=== PATIENT | male | born 1930 | race Hispanic/Latino ===

== ENCOUNTER 2019-09-07 20:21 | Inpatient (IN) ==
--- NOTE | 2019-09-07 22:31 | PROVIDER DOCUMENTATION ---
HPI-General Adult - General Chief Complaint: Fall Stated Complaint: FALL Time Seen by Provider: 09/07/19 21:59 Source: patient, family Allergies/Adverse Reactions: Patient Allergies Allergy/AdvReac Type Severity Reaction Status Date / Time Iodinated Contrast Media Allergy Severe SWELLING Verified 06/03/19 13:22 [Iodinated Contrast Media - IV Dye] Home Medications: Home Medication List Medication Instructions Recorded Confirmed Last Taken Type Atorvastatin Calcium [Lipitor] 20 mg PO HS 05/17/12 09/08/19 07/20/16 History Tamsulosin [Flomax] 0.4 mg PO HS 05/17/12 09/08/19 07/21/16 History Insulin Glargine [Lantus] 15 unit SUBQ DAILY 10/04/12 09/08/19 07/21/16 History Insulin Lispro [Humalog] 5 unit SUBQ BID 04/19/16 09/08/19 07/21/16 History Finasteride 5 mg PO DAILY 07/21/16 09/08/19 07/21/16 History Dicyclomine [Bentyl] 10 mg PO TID 09/08/19 09/08/19 Unknown History Memantine [Namenda] 10 mg PO DAILY 09/08/19 09/08/19 Unknown History Sertraline HCl 50 mg PO DAILY 09/08/19 09/08/19 Unknown History - History of Present Illness -Gen Adult Nature of Presenting Problems: 88yo male presents with family with CC of re-current falls. The patient had a fall yesterday and today. Today he hit his head when he fell and then felt nauseated and had to lay down. The patient reports that prior to falling he felt dizzy. The patient does have a hx of falls, previously thought due to his blood sugar. The patient reports hip and back pain, and some chest pains. The patient does struggle to remember his medications. The patient has not been dx with parkinsons disease. The patient does not have hx of alcohol, smoking, or illegal drugs. Location of Pain/Injury: reports: pelvis (hips) Severity: reports: mild Onset/Duration: reports: other (fell yesterday, and then again today) Context/Activities at Onset: reports: light activity, other (he noted dizziness prior to fall) Associated Symptoms: reports: back/neck pain, chest pain, dizziness, other (hand pain). denies: fever/chills, shortness of breath Similar Symptoms Previously?: Yes (multiple falls over the last 2 days) Review of Systems - Adult - REVIEW OF SYSTEMS - ADULT Constitutional: reports: no symptoms reported. denies: fever Eyes: reports: no symptoms reported. denies: eye pain Ears, Nose, Mouth & Throat: reports: no symptoms reported. denies: throat pain Cardiovascular: reports: chest pain Respiratory: reports: no symptoms reported. denies: shortness of breath Gastrointestinal: reports: no symptoms reported. denies: abdominal pain Genitourinary: reports: no symptoms reported Musculoskeletal: reports: back pain, joint pain, joint swelling, other (hand pain) Integumentary: reports: other (abrasion) Neurological: reports: dizziness/vertigo Psychiatric: reports: no symptoms reported Endocrine: reports: no symptoms reported Hematologic/Lymphatic: reports: no symptoms reported Allergic/Immunologic: reports: no symptoms reported Past History - Adult - PAST MEDICAL HISTORY-ADULT Review of Records: reports: Old Records Reviewed Major Childhood Illnesses: reports: denies history Cardiovascular: reports: hyperlipidemia Respiratory: reports: denies history Gastrointestinal: reports: colitis Obstetrical/Gynecological: reports: denies history Genitourinary: reports: denies history Musculoskeletal: reports: denies history Neurological: reports: denies history Endocrine/Immune: reports: Diabetes Other Conditions: reports: denies history - PRIOR SURGERIES/PROCEDURES Surgical/Procedure History: reports: tonsillectomy, hernia repair - IMMUNIZATION STATUS Childhood Immunizations: See Nurse Assessment Flu Vaccine: See Nurse Assessment - FAMILY HISTORY Family History: reviewed, not pertinent Physical Exam-General - PHYSICAL EXAM-ADULT Initial Vital Signs Reviewed: Yes - CONSTITUTIONAL General Appearance: appears well, alert, no apparent distress - EYES Eyes: PERRL/EOMI. negative: conjuctival exudate, photophobia, sclera injected, scleral icterus - HEAD, EARS, NOSE, MOUTH & THROAT HENMT: normocephalic/atraumatic, pharynx normal. negative: moist mucous membranes (dry), pharyngeal erythema, tonsillar exudate - NECK Neck: normal inspection - RESPIRATORY Respiratory: normal breath sounds, no respiratory distress - CARDIOVASCULAR Cardiovascular: regular rate, rhythm, no edema - GASTROINTESTINAL (ABDOMEN) Abdominal Exam: non tender, soft - MUSCULOSKELETAL Extremity: non-tender, normal inspection, other (strength 5/5 in the upper and LE bilaterally. Swelling and ecchymosis noted over the right middle finger.) - SKIN Integumentary: normal color, warm/dry - NEUROLOGIC Neurologic: ophthalmic dispenser II-XII nml as tested, other (tremor with activity). negative: aphasia, facial droop, focal weakness, motor weakness, sensory deficit - PSYCHIATRIC Psych/Mental Status: normal mood/affect, normal thought content, oriented x 3 Progress - PLAN OF CARE/RESULTS Progress/Plan/Lab Results: Vital Signs - 8 hr 09/07/19 20:29 Temperature 98.3 F Pulse Rate 98 H Respiratory Rate 18 Blood Pressure 118/65 O2 Sat by Pulse Oximetry 93 L Orders Category Date Time Status CT HEAD/C-SPINE W/O CONTRAST [CT] Stat Exams 09/07/19 22:06 Ordered HAND COMPLETE RIGHT [RAD] Stat Exams 09/07/19 22:30 Ordered SHOULDER-RIGHT [RAD] Stat Exams 09/07/19 22:30 Ordered THORACO-LUMBAR SPINE [RAD] Stat Exams 09/07/19 22:07 Ordered XRAY HIP W/PELVIS BILAT 3-4VWS [RAD] Stat Exams 09/07/19 22:07 Ordered cxr [CHEST-2 VIEWS] [RAD] Stat Exams 09/07/19 22:07 Ordered AMMONIA [CHEM] Stat Lab 09/07/19 22:08 Uncollected BNP [PRO B-NATRIURETIC PEPTIDE] Stat Lab 09/07/19 22:08 Uncollected CBC WITH DIFF [HEME] Stat Lab 09/07/19 22:08 Uncollected COMPREHENSIVE METABOLIC PANEL [CHEM] Stat Lab 09/07/19 22:08 Uncollected PROTIME WITH INR [COAG] Stat Lab 09/07/19 22:08 Uncollected PTT [COAG] Stat Lab 09/07/19 22:08 Uncollected TROPONIN T Stat Lab 09/07/19 22:08 Uncollected TSH Stat Lab 09/07/19 22:08 Uncollected URINALYSIS [URINALYSIS] Stat Lab 09/07/19 22:08 Uncollected EKG [EKG] Stat Ther 09/07/19 22:08 Ordered Result Diagrams: 09/07/19 23:09 09/07/19 23:09 - REASSESSMENT Reassessment #1 Status: other (Given complaints of prefall dizziness as well as some chest pain will plan to admit for observation. Family agreeable to this plan. Discussed with the hospitalist who has accepted the patient.) Departure - Departure Date of Disposition Decision: 09/08/19 Time of Disposition Decision: 01:56 DIAGNOSIS: Dizziness Fall Qualifiers: Encounter type: initial encounter Qualified Code(s): W19.XXXA - Unspecified fall, initial encounter Finger fracture Qualifiers: Fracture type: closed Phalanx: proximal Fracture alignment: nondisplaced Laterality: right Disposition: ADMITTED INPATIENT 09 Certified Medical Emergency: Emergent Condition: Good Referrals and Follow-Ups: Nisreen Garcia MD [Primary Care Provider] - - Critical Care Note This patient required my direct & personal management of CC.: No Attestation - Physician/ BREONNA Attestation Patient care was provided by Advanced Practice Provider:: No The physician spent face to face time with patient:: Yes Advanced Practice Provider documentation review:: Supervising physician onsite and consulted in the evaluation and care of this patient. The physician did have a face to face encounter with the patient.
[2019-09-07 23:40] LABS: BASO# 0.01 X1000 (0.0-0.2); BASO% 0.1 % (0.0-0.8); EOS# 0.01 X1000 (0.0-0.7); EOS% 0.1 % (0.0-10.0); HEMATOCRIT 40.3 % (42.0-52.0); HEMOGLOBIN 13.3 g/dL (14.0-18.0); IMM GRAN# 0.03 X1000 (0.0-0.04); IMM GRAN% 0.3 % (0.0-0.5); LYMPH# 1.03 X1000 (1.2-3.4); LYMPH% 11.3 % (20.5-51.1); MCH 30.3 PG (27-31); MCV 91.8 FL (81-99); MONO# 1.25 X1000 (0.11-0.59); MONO% 13.8 % (1.7-9.3); MPV 12.1 FL (7.4-10.4); NEUT# 6.76 X1000 (1.4-6.5); NEUT% 74.4 % (42.2-75.2); PLT 138 X1000 (130-400); RBC 4.39 XMIL (4.7-6.1); RDW 12.8 % (11.5-14.5); WBC 9.09 X1000 (4.8-10.8)
[2019-09-08 00:18] LABS: INR 1.07; PROTIME 14.1 Seconds (11.0-16.0)
[2019-09-08 00:19] LABS: PTT 31.4 Seconds (22.3-41.8)
[2019-09-08 00:25] LABS: AGAP 14; CHLORIDE 94 mmol/L (98-107); POTASSIUM 4.6 mmol/L (3.5-5.1); SODIUM 132 mmol/L (136-145); TCO2 24 mmol/L (25-35)
[2019-09-08 00:26] LABS: ALKALINE PHOSPHATASE 85 U/L (32-122); BUN 26 mg/dL (8-22); CALCIUM 8.8 mg/dL (8.8-10.2); COSMO 288; ESTIMATED GFR > 60; GLUCOSE 438 mg/dL (70-104); GOT 17 U/L (10-34); GPT 13 U/L (10-44); TOTAL BILIRUBIN 0.41 mg/dL (0.20-1.00)
[2019-09-08 00:45] LABS: URINE SOURCE VOIDED
[2019-09-08] MEDS ORDERED: NS 1,000 ML IV ONE (00:52)
[2019-09-08 01:31] LABS: ALLEN TEST YES; BE 1.9 mmoll (-3.0-3.0); BLOOD TYPE ARTERIAL; HCO3-(ACT) 26.4 mmoll (20.0-26.0); METHB 0.6 % (0.0-1.5); MODALITY ROOM AIR; O2(CT) 16.8 mL/dL (15.0-23.0); O2HB 95.3 % (95.0-99.0); PCO2(98.6) 36 mmHg (35-45); PO2(98.6) 73 mmHg (60-100); SAMPLE BLOOD; SAO2 97.1 % (95.0-100.0); THB 12.5 g/dL (11.5-17.4); pH(98.6) 7.46 (7.35-7.45)
[2019-09-08 01:36] LABS: BILIRUBIN URINE NEGATIVE (NEGATIVE); BLOOD URINE NEGATIVE (NEGATIVE); COLOR YELLOW; GLUCOSE URINE >1000 mg/dL (NEGATIVE); KETONE URINE NEGATIVE (NEGATIVE); LEUKOCYTES URINE NEGATIVE (NEGATIVE); NITRITE URINE NEGATIVE (NEGATIVE); PROTEIN URINE NEGATIVE (NEGATIVE); SP GRAVITY URINE 1.033; TURBIDITY URINE CLEAR (CLEAR); UR EPITHELIAL CELLS <10 /HPF (<10); URINE BACTERIA NEGATIVE /HPF; URINE RBC <10 /HPF (<10); URINE WBC <10 /HPF (<10); UROBILINOGEN URINE NORMAL (NORMAL)
[2019-09-08] MEDS ORDERED: HUMULIN R IV ONE (01:43)
--- NOTE | 2019-09-08 03:34 | EKG Report ---
Test Performed on : 09/08/2019 01:28:52 AM Test Reason : Chest Pain Blood Pressure : / mmHG Vent. Rate : 083 BPM Atrial Rate : 083 BPM P-R Int : 148 ms QRS Dur : 136 ms QT Int : 396 ms P-R-T Axes : 054 -13 013 degrees QTc Int : 465 ms Normal sinus rhythm. 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
[2019-09-08 04:39] LABS: HEMOGLOBIN A1C 8.9 % (4.8-6.0)
[2019-09-08] MEDS ORDERED: TYLENOL PO PRN (05:01)
[2019-09-08] MEDS ORDERED: ZOFRAN IV PRN (05:01)
--- NOTE | 2019-09-08 05:21 | HISTORY AND PHYSICAL ---
CHIEF COMPLAINT: Frequent falls. HISTORY OF PRESENT ILLNESS: Mr. Zapata is a very pleasant 88-year-old male who has had recurrent falls since December. Had several falls over the last couple of days. Today he was having some allergies, took some Zyrtec, was reportedly somewhat drowsy, was not paying attention and fell. He did hit his head. He did not have loss of consciousness. [place] nauseous when he laid down. Did have a feeling of dizziness right before he fell. The patient has the beginnings of dementia from what the daughter at the bedside tells me. He does not want help talking his medications and oftentimes forgets to take them altogether. He lives at home with his . There is one child local but I believe everyone else lives in [place]. At any rate, he may benefit from home health or changing living status. He will be admitted for further evaluation and treatment. PAST MEDICAL HISTORY: Dementia, hyperlipidemia, diabetes mellitus, type 2, now insulin-dependent, BPH. PREVIOUS SURGICAL HISTORY: Hernia repair and tonsillectomy. SOCIAL HISTORY: No tobacco, alcohol or illicit drugs. Lives at home with his . FAMILY HISTORY: His mother had diabetes mellitus. He did have one brother who had pancreatic cancer and . ALLERGIES: Iodine contrast causing anaphylaxis. HOME MEDICATIONS: Lispro insulin 5 units subcutaneously b.i.d., Lipitor 20 mg p.o. nightly, Bentyl 10 mg p.o. t.i.d., finasteride 5 mg p.o, daily, Lantus 15 units subcutaneously daily, Namenda 10 mg p.o. daily, sertraline 50 mg p.o. daily, Flomax 0.4 mg p.o. nightly. REVIEW OF SYSTEMS: Fourteen-point review of systems conducted with the patient. Pertinent positives listed above in the HPI. Also has complaint of right hand pain. All other systems reviewed and found to be negative. PHYSICAL EXAMINATION: VITAL SIGNS: Temperature 98.3, pulse 72, respirations 14, blood pressure 112/59, oxygen saturation 94% on room air. GENERAL: A pleasant 88-year-old male lying in the ER stretcher. Alert and oriented times 3, in no acute distress. Daughter is at bedside. Very attentive. HEENT: Head is normocephalic. An abrasion noted on the bridge of his nose. Sclera is anicteric. Pupils equal, round, reactive to light. Conjunctiva is pink. Oral mucosa is mildly dry. NECK: Supple. No JVD. No thyromegaly. Trachea is midline. No cervical lymphadenopathy. CARDIAC: S1, S2 appreciated. No murmurs, gallops, rubs. LUNGS: Clear to auscultation bilaterally. No rhonchi, wheezes or rales. Symmetric rise and fall with respirations. ABDOMEN: Soft, nondistended, nontender. Bowel sounds present all 4 quadrants, normoactive. No pulsatile mass. No organomegaly. EXTREMITIES: No clubbing, cyanosis or edema bilateral lower extremities. Right upper extremity edema and ecchymosis noted over the right middle and index finger. MUSCULOSKELETAL: 5/5 upper and lower extremity strength. NEUROLOGICAL: Alert and oriented times 3. Cranial nerves 2 through 12 grossly intact. He does have an intention tremor in bilateral upper extremities. DIAGNOSTIC DATA: CT of the head: No acute intracranial process. Chest x-ray: No acute disease. LABORATORY DATA: WBC 9.09. Hemoglobin 13.3. Hematocrit 40.3. Platelet count 138. Sodium 132. Potassium 4.6. Chloride 94. Carbon dioxide 24. BUN 26. Creatinine 1. Glucose 438. Urine unremarkable. ASSESSMENT: 1. Frequent falls. 2. Diabetes mellitus, type 2, insulin-dependent with hyperglycemia. 3. Dementia. 4. Hyperlipidemia. 5. Benign prostatic hyperplasia. 6. Poor medical compliance. PLAN: Will admit patient to the medical floor. Normal saline. Recheck laboratory data. Sliding scale insulin with fingerstick blood sugars q.4.h. Check hemoglobin A1c. Check TSH. Continue home medications. Consult Case Management for safe discharge. Spoke to the daughter about home health or possibly an assisted living. She stated that she would take information on that. However, the patient has made it clear that he does not want to move out of his house. Continue to monitor the patient. Further recommendation per patient clinical course. Dictated by WINSTON Borden for Elijah Rodriguez MD I have performed a face to face diagnostic evaluation. Labs/ xrays- reviewed. Exam- Chest- clear, CV- regular. A/P- Falls, DM2- Admit, fall precautions, Monitor BG, HBA1c. Dr. Rodriguez cc: MD Royal Lara CRNP Lloyd James, MD [facility]
[2019-09-08] MEDS: HUMALOG SUBQ SCH ×5 (05:22→22:59)
[2019-09-08] MEDS: NS 1,000 ML IV SCH ×2 (06:02→23:06)
--- NOTE | 2019-09-08 07:26 | Diag Imaging Result Doc PS360 ---
EXAM: THORACO-LUMBAR SPINE 09/07/2019 HISTORY: Fall TECHNIQUE: Thoracolumbar spine three views COMMENT: The pedicles are intact. There are osteophytes present anteriorly at multiple levels particularly at the T12-L1 level. There is no evidence of fracture or subluxation. IMPRESSION: Degenerative disc disease. Electronically signed by Golden Del Rio 09/08/2019 7:24 AM
--- NOTE | 2019-09-08 07:28 | Diag Imaging Result Doc PS360 ---
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 There is no evidence of pneumothorax or pleural fluid collection. The heart size and pulmonary vascularity are within normal limits. The inspiration is less optimal than on 07/27/2017. Otherwise considering differences in technique there has been no significant change. IMPRESSION: No acute disease. Electronically signed by Golden Del Rio 09/08/2019 7:25 AM
--- NOTE | 2019-09-08 07:29 | Diag Imaging Result Doc PS360 ---
EXAM: XRAY HIP W/PELVIS BILAT 3-4VWS 09/07/2019 HISTORY: Fall TECHNIQUE: AP pelvis and left hip three views COMMENT: The hip joint spaces are well-maintained. There is no evidence of acute fracture or dislocation. IMPRESSION: No acute bony abnormality. Electronically signed by Golden Del Rio 09/08/2019 7:26 AM
--- NOTE | 2019-09-08 07:47 | Diag Imaging Result Doc PS360 ---
EXAM: SHOULDER-RIGHT 09/07/2019 HISTORY: Fall TECHNIQUE: Right shoulder three views COMMENT: There is degenerative change in the acromioclavicular and glenohumeral joint. There is no evidence of fracture or dislocation. IMPRESSION: Osteoarthritis. Electronically signed by Golden Del Rio 09/08/2019 7:45 AM
--- NOTE | 2019-09-08 07:47 | Diag Imaging Result Doc PS360 ---
EXAM: HAND COMPLETE RIGHT 09/07/2019 HISTORY: Fall and swelling TECHNIQUE: Right hand three views COMMENT: There is a fracture of the proximal phalanx of the ring finger. There are degenerative changes in the interphalangeal joints and first metacarpophalangeal joint. IMPRESSION: Fracture fourth proximal phalanx. Electronically signed by Golden Del Rio 09/08/2019 7:44 AM
--- NOTE | 2019-09-08 08:03 | Diag Imaging Result Doc PS360 ---
EXAM: CT HEAD/C-SPINE W/O CONTRAST 09/07/2019 HISTORY: Fall with Head injury TECHNIQUE: This exam was performed using automated exposure control, adjustment of mA or kV according to patient size, and/or use of iterative reconstruction technique. COMMENT: There is mild generalized cerebral and cerebellar atrophy. There is no evidence of mass effect, bleed, or abnormal extra-axial fluid collection. Compared to 11/26/2018 the appearance the brain has not changed significantly. The calvarium is intact. There is a mucous retention cyst and some mucosal thickening in the right maxillary sinus. There are no air-fluid levels. There is also mucosal thickening in the right sphenoid sinus. The nasal bones and nasal septum are deviated somewhat to the right. This was also the case at the time the previous study. Cervical spine: There are degenerative changes in the anterior atlantoaxial joint. There is degenerative disc disease with anterior osteophyte formation at multiple levels and vacuum phenomenon present at the C6-7 level. Compared to the previous study of 11/26/2018 the vacuum phenomenon was not present previously but otherwise are has been no significant change. There is no prevertebral soft tissue swelling. The facets are aligned. There is severe facet arthropathy present on the left side at the C4-5 and to some extent C5-6 level. This was also the case at the time the previous study. IMPRESSION: 1. No evidence of acute intracranial disease. Chronic sinusitis as described. 2. 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 Electronically signed by Golden Del Rio 09/08/2019 8:00 AM
[2019-09-08] MEDS: ZOLOFT PO SCH (09:05)
[2019-09-08] MEDS: NAMENDA PO SCH (09:05)
[2019-09-08] MEDS: BENTYL PO SCH ×3 (09:05→17:50)
[2019-09-08] MEDS: PROSCAR PO SCH (09:05)
[2019-09-08] MEDS: LANTUS INSULIN SUBQ SCH (17:50)
[2019-09-08] MEDS: FLOMAX PO SCH (22:59)
[2019-09-08] MEDS: LIPITOR PO SCH (22:59)
[2019-09-09] MEDS: HUMALOG SUBQ SCH ×6 (03:47→22:05)
[2019-09-09 07:58] LABS: AGAP 10; BUN 17 mg/dL (8-22); CALCIUM 8.4 mg/dL (8.8-10.2); CHLORIDE 102 mmol/L (98-107); COSMO 284; CREATININE 0.8 mg/dL (0.7-1.2); ESTIMATED GFR > 60; GLUCOSE 215 mg/dL (70-104); POTASSIUM 4.1 mmol/L (3.5-5.1); SODIUM 138 mmol/L (136-145); TCO2 26 mmol/L (25-35)
[2019-09-09 09:28] LABS: BASO# 0.01 X1000 (0.0-0.2); BASO% 0.1 % (0.0-0.8); EOS# 0.08 X1000 (0.0-0.7); HEMATOCRIT 38.5 % (42.0-52.0); HEMOGLOBIN 12.6 g/dL (14.0-18.0); IMM GRAN# 0.02 X1000 (0.0-0.04); IMM GRAN% 0.3 % (0.0-0.5); LYMPH# 1.39 X1000 (1.2-3.4); LYMPH% 17.5 % (20.5-51.1); MCH 30.4 PG (27-31); MCHC 32.7 g/dL (33-37); MONO# 1.02 X1000 (0.11-0.59); MONO% 12.8 % (1.7-9.3); MPV 11.8 FL (7.4-10.4); NEUT# 5.44 X1000 (1.4-6.5); NEUT% 68.3 % (42.2-75.2); PLT 141 X1000 (130-400); RBC 4.14 XMIL (4.7-6.1); RDW 12.7 % (11.5-14.5); WBC 7.96 X1000 (4.8-10.8)
[2019-09-09] MEDS: NAMENDA PO SCH (09:41)
[2019-09-09] MEDS: PROSCAR PO SCH (09:42)
[2019-09-09] MEDS: ZOLOFT PO SCH (09:42)
[2019-09-09] MEDS: BENTYL PO SCH ×3 (09:42→17:42)
--- NOTE | 2019-09-09 12:03 | PROGRESS NOTE ---
DATE: 09/09/2019 SUBJECTIVE: Patient reports feeling fine. Denies any complaint at this time. OBJECTIVE: Vital Signs: Temperature 98.2 degrees, heart rate 72, respiratory rate 20, blood pressure 127/50, O2 saturation 96% on room air. General: This is a very pleasant 88-year-old male, lying in bed, in no acute distress. Cardiovascular: S1, S2 heard. No murmurs, gallops, or rubs. Regular rate and rhythm. Respiratory: Clear bilaterally to auscultation. No work of breathing or using accessory muscles. Abdomen: Soft. Nontender to palpation. Bowel sounds present. No organomegaly. Extremities: Right upper extremity edema and ecchymosis noted in the right fourth finger. Neurological: Patient alert and oriented x3. Moves 4 extremities. LABORATORY DATA: Reviewed. ASSESSMENT AND PLAN: 1. Frequent falls. That is the reason why this patient was admitted to the hospital. I have talked with the patient and his family, and they agreed to go to rehab facility. We will put a consult for mental health social worker tomorrow, and we will go from there. 2. Diabetes mellitus type 2. We will continue with sliding scale insulin. Accu-Chek before meals and also at bedtime. 3. Dementia. Patient looks to be very oriented. 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 At this point, we will continue with current management. 4. Hyperlipidemia. Will continue home medications. 5. Disposition. As we mentioned before, Physical Therapy and Occupational Therapy have been consulted, and we will put a consult in for mental health social worker for rehab placement for this patient. cc: Blaine Doan MD
[2019-09-09] MEDS: NS 1,000 ML IV SCH (17:42)
[2019-09-09] MEDS: LANTUS INSULIN SUBQ SCH (17:43)
[2019-09-09] MEDS: LIPITOR PO SCH (22:02)
[2019-09-09] MEDS: FLOMAX PO SCH (22:03)
[2019-09-10] MEDS: HUMALOG SUBQ SCH ×6 (02:36→22:50)
[2019-09-10] MEDS: NS 1,000 ML IV SCH ×3 (06:51→22:50)
[2019-09-10 07:35] LABS: BASO# 0.01 X1000 (0.0-0.2); BASO% 0.1 % (0.0-0.8); EOS# 0.09 X1000 (0.0-0.7); EOS% 1.3 % (0.0-10.0); HEMATOCRIT 39.5 % (42.0-52.0); HEMOGLOBIN 13.1 g/dL (14.0-18.0); IMM GRAN# 0.02 X1000 (0.0-0.04); IMM GRAN% 0.3 % (0.0-0.5); LYMPH# 1.29 X1000 (1.2-3.4); LYMPH% 19.2 % (20.5-51.1); MCH 30.2 PG (27-31); MCHC 33.2 g/dL (33-37); MONO# 0.61 X1000 (0.11-0.59); MONO% 9.1 % (1.7-9.3); MPV 11.4 FL (7.4-10.4); PLT 151 X1000 (130-400); RBC 4.34 XMIL (4.7-6.1); RDW 12.3 % (11.5-14.5); WBC 6.72 X1000 (4.8-10.8)
[2019-09-10 08:09] LABS: AGAP 13; ALBUMIN 3.3 g/dL (3.5-5.0); BUN 16 mg/dL (8-22); CALCIUM 8.5 mg/dL (8.8-10.2); CHLORIDE 105 mmol/L (98-107); COSMO 286; CREATININE 0.7 mg/dL (0.7-1.2); ESTIMATED GFR > 60; GLUCOSE 134 mg/dL (70-104); PHOSPHORUS 2.9 mg/dL (2.7-4.5); SODIUM 142 mmol/L (136-145); TCO2 24 mmol/L (25-35)
[2019-09-10] MEDS: BENTYL PO SCH ×3 (08:38→22:51)
[2019-09-10] MEDS: PROSCAR PO SCH (08:38)
[2019-09-10] MEDS: ZOLOFT PO SCH (08:38)
[2019-09-10] MEDS: NAMENDA PO SCH (08:38)
--- NOTE | 2019-09-10 11:42 | PROGRESS NOTE ---
DATE: 09/10/2019 SUBJECTIVE: The patient reports feeling fine. No complaints at this time. OBJECTIVE: Vital Signs: Temperature 97.5 degrees, heart rate 69, respiratory rate 18, blood pressure 137/152, and O2 saturation 97% on room air. General: On examination this is a very pleasant 88-year-old male, lying in bed, in no acute distress. Cardiovascular: S1, S2 heard. No murmurs, gallops, or rubs. Regular rate and rhythm. Respiratory: Clear bilaterally to auscultation. No work of breathing or using accessory muscles. Abdomen: Soft, nontender to palpation. Bowel sounds present. No organomegaly. Extremities: Right upper extremity edema and ecchymosis noted in the right 4th finger. Neurologic: On exam, patient alert and oriented x3. Moves 4 extremities. LABORATORY DATA: Reviewed. ASSESSMENT AND PLAN: 1. Frequent falls. Patient agreed to go to rehab facility. At this point, social work case manager has been consulted. He is ready to go to rehab at this point from medical standpoint. 2. Diabetes mellitus type 2. We will continue with sliding scale insulin. Accu-Chek before meals and also at bedtime. 3. History of dementia. For me, the patient looks to be very oriented. 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 We will continue with current management. 4. Hyperlipidemia. We will continue home medications. 5. Disposition. As we mentioned before, physical therapy and occupational therapy have been consulted. We are awaiting a rehab bed for this patient. cc: Blaine Doan MD
[2019-09-10] MEDS: LANTUS INSULIN SUBQ SCH (17:45)
[2019-09-10] MEDS: FLOMAX PO SCH (22:51)
[2019-09-10] MEDS: LIPITOR PO SCH (22:51)
[2019-09-11] MEDS: HUMALOG SUBQ SCH ×7 (01:21→21:57)
[2019-09-11 07:54] LABS: BASO# 0.01 X1000 (0.0-0.2); BASO% 0.1 % (0.0-0.8); EOS# 0.05 X1000 (0.0-0.7); EOS% 0.6 % (0.0-10.0); HEMATOCRIT 38.2 % (42.0-52.0); HEMOGLOBIN 12.8 g/dL (14.0-18.0); IMM GRAN# 0.05 X1000 (0.0-0.04); IMM GRAN% 0.6 % (0.0-0.5); LYMPH# 1.04 X1000 (1.2-3.4); LYMPH% 12.6 % (20.5-51.1); MCH 30.6 PG (27-31); MCHC 33.5 g/dL (33-37); MCV 91.4 FL (81-99); MONO# 0.72 X1000 (0.11-0.59); MONO% 8.7 % (1.7-9.3); MPV 11.4 FL (7.4-10.4); NEUT# 6.41 X1000 (1.4-6.5); NEUT% 77.4 % (42.2-75.2); PLT 162 X1000 (130-400); RBC 4.18 XMIL (4.7-6.1); RDW 12.4 % (11.5-14.5); WBC 8.28 X1000 (4.8-10.8)
[2019-09-11 08:20] LABS: AGAP 12; ALBUMIN 3.3 g/dL (3.5-5.0); BUN 17 mg/dL (8-22); CALCIUM 8.6 mg/dL (8.8-10.2); CHLORIDE 103 mmol/L (98-107); COSMO 284; CREATININE 0.8 mg/dL (0.7-1.2); ESTIMATED GFR > 60; GLUCOSE 154 mg/dL (70-104); PHOSPHORUS 3.8 mg/dL (2.7-4.5); POTASSIUM 4.4 mmol/L (3.5-5.1); SODIUM 140 mmol/L (136-145); TCO2 25 mmol/L (25-35)
[2019-09-11] MEDS: NAMENDA PO SCH (08:33)
[2019-09-11] MEDS: PROSCAR PO SCH (08:33)
[2019-09-11] MEDS: BENTYL PO SCH ×3 (08:33→21:57)
[2019-09-11] MEDS: ZOLOFT PO SCH (08:33)
--- NOTE | 2019-09-11 12:01 | PROGRESS NOTE ---
DATE: 09/11/2019 SUBJECTIVE: Patient reports feeling fine. No complaints at this time. OBJECTIVE: Vital Signs: Temperature 97.8, heart rate 66, respiratory rate 16, blood pressure 146/86, O2 saturation 98% on room air. General Examination: This is a very pleasant, 88-year- old, male, lying in bed, in no acute distress. Cardiovascular Examination: S1 and S2 heard. No murmurs, gallops, or rubs. Regular rate and rhythm. Respiratory Examination: Clear bilaterally to auscultation. No work of breathing or using accessory muscles. Abdomen: Soft, nontender to palpation. Bowel sounds present. No organomegaly. Extremities: No clubbing, cyanosis, or edema. There is right hand edema, ecchymoses noted in the right 4th finger. Neurological Examination: The patient is alert and oriented x3. Moves 4 extremities. ASSESSMENT AND PLAN: 1. Frequent falls. Patient has been admitted to the hospital because of this condition. We are awaiting a rehab bed at this point. wood processing worker is working on it. 2. Diabetes mellitus type 2. We will continue with sliding scale, and Accu-Chek before meals and also at bedtime. 3. History of dementia. Aware. We will continue home medications. He looks very functional. 4. Hyperlipidemia. We will continue home medications. 5. Disposition. Physical therapy and occupational therapy working with this patient. Awaiting a rehab bed for him. cc: Blaine Doan MD
[2019-09-11] MEDS: NS 1,000 ML IV SCH (14:26)
[2019-09-11] MEDS: LANTUS INSULIN SUBQ SCH (17:35)
[2019-09-11] MEDS: FLOMAX PO SCH (21:57)
[2019-09-11] MEDS: LIPITOR PO SCH (21:57)
[2019-09-12] MEDS: HUMALOG SUBQ SCH ×6 (03:48→21:22)
[2019-09-12] MEDS: PROSCAR PO SCH (10:37)
[2019-09-12] MEDS: BENTYL PO SCH ×3 (10:37→23:51)
[2019-09-12] MEDS: ZOLOFT PO SCH (10:37)
[2019-09-12] MEDS: NAMENDA PO SCH (10:37)
--- NOTE | 2019-09-12 12:24 | PROGRESS NOTE ---
DATE: 09/12/2019 SUBJECTIVE: Patient reports feeling fine. No complaints at this time. OBJECTIVE: Vital Signs: Temperature 97.8 degrees, heart rate 72, respiratory 14, blood pressure 152/89, and O2 saturation 98% on room air. General: This is a very pleasant 88-year-old male lying in bed in no acute distress. Cardiovascular: S1, S2 heard. No murmurs, gallops, or rubs. Regular rate and rhythm. Respiratory: Clear bilaterally to auscultation. No work of breathing or using accessory muscles. Abdomen: Soft, nontender to palpation. Bowel sounds present. No organomegaly. Extremities: No clubbing, cyanosis, or edema. Peripheral pulses present in both legs. There is right hand edema with ecchymosis noted in the right 4th finger. Neurological: Patient is alert and oriented x3. Moves all 4 extremities. LABORATORY DATA: Reviewed. ASSESSMENT AND PLAN: 1. Frequent falls. Patient basically has been admitted because of this condition awaiting a rehab bed for this patient at this point. Senior Supply Chain Analyst involved in his case. 2. Diabetes mellitus type 2. We will continue with sliding scale insulin. Accu-Chek before meals and also at bedtime. 3. History of dementia. Aware. Pretty much very oriented at times, able to have a good conversation. We will continue home medications. He looks very functional. 4. Hyperlipidemia. We will continue home medications. 5. Disposition. At this point, physical therapy and occupational therapy working with this patient. Awaiting a rehab bed for him. cc: Blaine Doan MD
[2019-09-12] MEDS: LANTUS INSULIN SUBQ SCH (18:04)
[2019-09-12] MEDS: LIPITOR PO SCH (21:22)
[2019-09-12] MEDS: FLOMAX PO SCH (21:22)
[2019-09-13] MEDS: HUMALOG SUBQ SCH ×6 (01:39→21:44)
[2019-09-13] MEDS: ZOLOFT PO SCH (10:08)
[2019-09-13] MEDS: NAMENDA PO SCH (10:08)
[2019-09-13] MEDS: BENTYL PO SCH ×3 (10:08→17:00)
[2019-09-13] MEDS: PROSCAR PO SCH (10:08)
--- NOTE | 2019-09-13 15:08 | PROGRESS NOTE ---
DATE: 09/13/2019 SUBJECTIVE: The patient reports feeling fine. No complaints at this time. OBJECTIVE: Vital Signs: Temperature 98.7 degrees, heart rate 82, respiratory rate 15, blood pressure 149/62, O2 saturation 99% on room air. General: This is a very pleasant, 88-year-old, male, lying in bed in no acute distress. Cardiovascular: S1, S2 heard. No murmurs, gallops, or rubs. Regular rate and rhythm. Respiratory: Clear bilaterally to auscultation. No work of breathing or using accessory muscles. Abdomen: Soft, nontender to palpation. Bowel sounds present. No organomegaly. Extremities: No clubbing, cyanosis, or edema. Peripheral pulses present in both legs. Neurological: The patient is alert and oriented x3. Moves all 4 extremities. LABORATORY DATA: Reviewed. ASSESSMENT AND PLAN: 1. Frequent falls. The patient has been admitted to the hospital because of frequent falls and needing to go to rehab. At this point, I have been informed that he has been accepted to [facility]. We are basically waiting for a bed there, and then this patient will be discharged. 2. Diabetes mellitus type 2. Will continue with sliding scale insulin and Accu-Chek before meals and also at bedtime. 3. History of dementia. Aware. The patient looks to be very functional at this point. Will continue with current medicines. 4. Hyperlipidemia. Will continue home medications. 5. Disposition. At this point, we continue to wait for a rehab bed. cc: Blaine Doan MD
[2019-09-13] MEDS: LANTUS INSULIN SUBQ SCH (17:00)
[2019-09-13] MEDS: LIPITOR PO SCH (21:44)
[2019-09-13] MEDS: FLOMAX PO SCH (21:44)
[2019-09-14] MEDS: HUMALOG SUBQ SCH ×4 (05:11→13:05)
[2019-09-14 07:36] VITALS: BP 116/58
[2019-09-14] MEDS: PROSCAR PO SCH (10:37)
[2019-09-14] MEDS: ZOLOFT PO SCH (10:37)
[2019-09-14] MEDS: NAMENDA PO SCH (10:37)
[2019-09-14] MEDS: BENTYL PO SCH ×2 (10:37→12:58)
--- NOTE | 2019-09-14 12:23 | DISCHARGE SUMMARY ---
ADMISSION DATE: 09/09/2019 DISCHARGE DATE: 09/14/2019 DISCHARGE DIAGNOSES: 1. Recurrent falls. 2. Type 2 diabetes. 3. Dementia. 4. Hyperlipidemia. 5. Left orbital conjunctivitis. 6. Fracture of the 4th proximal phalanx. HISTORY AND HOSPITAL COURSE: Briefly, this is an 88-year-old gentleman. He was admitted on the for frequent falls. He has had several falls since December. He does have significant dementia but is fairly well controlled with his medications. Daughter checks on him frequently. He was admitted for further evaluation, felt that it was not safe to go directly home. The only major injury he had was a nondisplaced proximal phalanx fracture of his 4th proximal phalanx on the right hand which was splinted. The patient was observed. He progressed with rehab. He was evaluated for inpatient rehab and recommended for inpatient rehab. He ended up being transferred to [facility] on the for further management. He did have, on the day of discharge, irritation to his left eye which apparently he fell. Well he said he hit head but he did not injure his left eye and he has got conjunctival injection and irritation around the eye. We will initiate therapy for possible bacterial conjunctivitis. Otherwise, his vital signs are stable. His mental status is stable DISCHARGE MEDICATIONS: Bentyl 10 t.i.d., finasteride 5 daily, Flomax 0.4 daily, Humalog 5 units b.i.d., Lantus 15 units daily, Lipitor 20 at bedtime, Namenda 10 daily, sertraline 50 daily, Cipro 0.3 ointment t.i.d. for 7 days, Ultram 50 q.6h p.r.n. pain. DISCHARGE CONDITION: Stable. TIME SPENT: This is a 32 minute discharge. cc: Evangelist Adams MD
[2019-09-14] MEDS ORDERED: CILOXAN OPHTH OINT LEFT EYE SCH (13:00)
== END 2019-09-14 13:15 | DRG 93 ==
LOC: ED 20:21 → 4N 09-08 04:38 → SUATTDRO 09-08 04:38 → INTOOBSV 09-08 04:38 → SUATTDRO 09-09 14:12
PROVIDERS: ATTEND Internal Medicine